=== PATIENT | male | born 2000 | race Caucasian/White ===

== ENCOUNTER 2025-04-09 20:50 | Emergency (ER) | payer SELFPAY ==
[2025-04-09] MEDS ORDERED: Bacitracin 1 PK ONE (21:27)
[2025-04-09] MEDS ORDERED: Amoxicillin/Potassium Clav 875 MG TAB ONE (21:28)
== END 2025-04-09 22:45 ==
LOC: EEVIPCON 20:50 → NAV ERS 20:50
DX: S41.152A Open bite of left upper arm, initial encounter (principal); S41.151A Open bite of right upper arm, initial encounter; S80.212A Abrasion, left knee, initial encounter; S80.211A Abrasion, right knee, initial encounter; F17.290 Nicotine dependence, other tobacco product, uncomplicated; Y04.1XXA Assault by human bite, initial encounter; Z23 Encounter for immunization
CPT/HCPCS: 70450; 70486; 72125; 90471; 90715